=== PATIENT | female | born 1970 | race American Indian/Alaskan Native ===

== ENCOUNTER 2017-02-27 17:07 | Emergency (ER) | payer OTHER ==
[2017-02-27 17:24] VITALS: BP 126/94
[2017-02-27] MEDS ORDERED: ZOFRAN ODT PO ONE (18:04)
[2017-02-27] MEDS ORDERED: ZOFRAN ODT ONE (18:05)
[2017-02-27] MEDS ORDERED: TORADOL ONE (18:05)
[2017-02-27] MEDS ORDERED: TORADOL IM ONE (18:05)
--- NOTE | 2017-02-27 18:06 | Emergency Department Report ---
Entered by DEBBIE AL, acting as scribe for RICCARDO WISE PA. Chief Complaint: Abdominal Pain Stated Complaint: ABD PAIN Time Seen by Provider: 02/27/17 17:34 - HPI History of Present Illness: Pt c/o an acute onset of 8/10, LLQ abdominal pain that began today. Aggravated with standing and lying down, and alleviated with bending over. Reports intermittent vaginal bleeding for 4 months. Reports seeing OB 2 weeks ago and a trans vaginal ultrasound was performed, but she has not received results. Notes she had a test done 1-2 weeks ago with negative results Reports nausea, vomiting, and diarrhea. Reports left low back pain. Denies urinary urgency and frequency. Denies vaginal bleeding and discharge. Denies hematuria Denies fever and chills PMHx of HTN. Reports compliancy to HTN medication. Denies Hx of renal stones and ovarian cysts. Notes PSHx of right salpingectomy due to an ectopic - ROS Review of Systems: All system are negative unless stated in HPI above. - Exam Vital Signs: Vital Signs 02/27/17 17:14 Temperature 98.8 F Pulse Rate 95 H Respiratory 20 Rate Blood Pressure 126/94 O2 Sat by Pulse 100 Oximetry Physical Exam: General: well nourished, well developed, 46 year old female in no acute distress and nontoxic in appearance Abdomen: Soft, normal bowel sounds in all quadrants and negative CVA tenderness bilaterally. No guarding or rebound. LLQ tenderness present. MSE screening note: Focused history and physical exam performed. Due to findings the following was ordered: see below ED Medical Decision Making - Medical Decision Making MDM: Patient screened by provider in triage area. Appropriate protocol initiated. Patient to be seen by MD on main ED side. ED Disposition for MSE Condition: Stable Instructions: Abdominal Pain (ED) This documentation as recorded by the scribe,DEBBIE AL,accurately reflects the service I personally performed and the decisions made by me,RICCARDO WISE PA.
[2017-02-27 18:26] LABS: Bilirubin,Urine NEG (Negative); Blood,Urine NEG (Negative); Ketones,Urine TR mg/dL (Negative); Leukocyte Esterase,Urine NEG (Negative); Mucus,Urine FEW /HPF; Nitrite,Urine NEG (Negative); Protein,Urine <15 mg/dL mg/dL (Negative); Urobilinogen,Urine < 2.0 mg/dL (<2.0)
[2017-02-27 18:29] LABS: WBC,Urine < 1.0 /HPF (0.0-6.0)
[2017-02-27 18:30] LABS: Hematocrit 42.9 % (30.3-42.9); Hemoglobin 14.3 gm/dl (10.1-14.3); Mean Corpuscular HGB Conc 33 % (30-34); Mean Corpuscular Hemoglobin 30 pg (28-32); Mean Corpuscular Volume 91 fl (79-97); Platelet Count 249 K/mm3 (140-440); Red Blood Count 4.71 M/mm3 (3.65-5.03); Red Cell Distribution Width 13.9 % (13.2-15.2); White Blood Count 21.8 K/mm3 (4.5-11.0)
[2017-02-27 18:51] LABS: Alanine Aminotransferase 26 units/L (7-56); Albumin 4.5 g/dL (3.9-5); Albumin/Globulin Ratio 1.2 %; Alkaline Phosphatase 79 units/L (35-129); Anion Gap 24 mmol/L; BUN/Creatinine Ratio 12.85; Blood Urea Nitrogen 9 mg/dL (7-17); Calcium 9.6 mg/dL (8.4-10.2); Carbon Dioxide 20 mmol/L (22-30); Chloride 98.2 mmol/L (98-107); Glucose 105 mg/dL (65-100); Lipase 23 units/L (13-60); Potassium 3.7 mmol/L (3.6-5.0); Sodium 138 mmol/L (137-145); Total Protein 8.4 g/dL (6.3-8.2)
[2017-02-27 19:29] LABS: Anisocytosis 1+; Basophils % (Manual) 0 % (0.0-1.8); Blastocytes % (Manual) 0 %; Eosinophils % (Manual) 0 % (0.0-4.3)
[2017-02-27 19:30] LABS: Diff Status Complete
== END 2017-02-27 19:21 | disposition left against medical advice (07) ==
LOC: ED 17:07
DX: R10.32 Left lower quadrant pain (principal); N93.9 Abnormal uterine and vaginal bleeding, unspecified
CPT/HCPCS: 36415; 80053; 81001; 83690; 84703; 85007; 85025; 96372; 99283; J1885; Q0162